=== PATIENT | female | born 1930 | race Caucasian/White ===

== ENCOUNTER 2019-05-29 13:18 | Emergency (ER) | payer OTHER ==
[~2019-05-29] VITALS: Ht 165.1 cm; Wt 64.0 kg
--- NOTE | 2019-05-29 13:30 | NUR ---
BIB RA c/o laceration to bridge of nose s/p syncopal episode. Patient a/ox3, breathing even and unlabored, no sob noted. Patient unable to recall what happened. Kept comfortable.
[2019-05-29 13:46] LABS: BASOPHILS # (AUTO) 0.1 /CMM (0.0-0.2); BASOPHILS % (AUTO) 0.6 % (0.0-2.0); EOSINOPHILS % (AUTO) 7.7 % (0.0-6.0); HEMATOCRIT 45 % (33-45); HEMOGLOBIN 15.3 g/dL (11.5-14.8); LYMPHOCYTES # (AUTO) 3.9 /CMM (0.8-4.8); LYMPHOCYTES % (AUTO) 35.3 % (20.0-44.0); MEAN CORPUSCULAR HGB CONC 34 g/dl (31.0-36.0); MEAN CORPUSCULAR VOLUME 103 fL (82-100); MONOCYTES # (AUTO) 0.5 /CMM (0.1-1.30); NEUTROPHILS # (AUTO) 5.7 /CMM (1.8-8.9); NEUTROPHILS % (AUTO) 51.4 % (43.0-81.0); PLATELET COUNT (AUTO) 184 /CMM (150-450); RED BLOOD CELL COUNT(AUTO) 4.35 MIL/uL (4.0-5.2)
[2019-05-29 13:55] LABS: CALCIUM, SERUM 9.3 mg/dL (8.5-10.1); CARBON DIOXIDE 19 mmol/L (21-32); CHLORIDE 105 mmol/L (98-107); CREATININE 1.1 mg/dL (0.6-1.3); GLUCOSE 124 mg/dL (74-106); POTASSIUM 3.9 mmol/L (3.5-5.1); SODIUM SERUM 142 mmol/L (136-145); UREA NITROGEN, BLOOD 20 mg/dL (7-18)
[2019-05-29 14:00] LABS: ALANINE AMINOTRANSFERASE 38 U/L (12-78); ALBUMIN 3.8 g/dL (3.4-5.0); ALKALINE PHOSPHATASE 68 U/L (46-116); ASPARTATE AMINOTRANSFERASE 27 U/L (15-37); BILIRUBIN,DIRECT 0.1 mg/dL (0.0-0.2); BILIRUBIN,TOTAL 0.6 mg/dL (0.2-1.0); TOTAL PROTEIN, SERUM 6.8 g/dL (6.4-8.2)
--- NOTE | 2019-05-29 14:00 | NUR ---
PATIENT TAKEN TO CT.
--- NOTE | 2019-05-29 14:15 | NUR ---
CALLED [facility] [phone]
[2019-05-29] MEDS ORDERED: IV NS 0.9% 1,000 ML BAG IV ONE (14:30)
--- NOTE | 2019-05-29 14:37 | NUR ---
ACCEPTED BY DR. AMAYA
--- NOTE | 2019-05-29 15:28 | NUR ---
SPOKE WITH MELISSA SILVERMAN AND GAVE UPDATED CLINICALS.
--- NOTE | 2019-05-29 16:24 | NUR ---
Patient ambulatory with steady gait, assisted to restroom. Denies pain at this time.
--- NOTE | 2019-05-29 16:31 | NUR ---
GOING TO [facility] [place] [facility] [phone] ACCEPTING MD MONGE. [facility] ALS AT 1730.
[2019-05-29] MEDS ORDERED: LABETALOL HCL IV 100MG VIAL ONE (16:56)
[2019-05-29] MEDS ORDERED: LABETALOL HCL IV 100MG VIAL IV ONE (17:00)
[2019-05-29 17:02] VITALS: BP 200/105
--- NOTE | 2019-05-29 17:28 | NUR ---
REPORT GIVEN TO [employer]. PATIENT IN STABLE CONDITION. NO DISTRESS NOTED. NEEDS ATTENDED. KEPT COMFORTABLE. PATIENT LEFT THE FACILITY.
== END 2019-05-29 17:29 | disposition short-term general hospital (02) ==
LOC: ER 13:21
DX: S01.21XA Laceration without foreign body of nose, initial encounter (principal); R55 Syncope and collapse; I10 Essential (primary) hypertension; W19.XXXA Unspecified fall, initial encounter; Y93.89 Activity, other specified; Y92.89 Other specified places as the place of occurrence of the external cause; Y99.8 Other external cause status
CPT/HCPCS: 36415; 70450; 70486; 71045; 72125; 80048; 80076; 84484; 85025; 85730; 93005; 96361; 96374; 99285; J3490; J7030

== ENCOUNTER 2019-09-23 02:59 | Emergency (ER) | payer OTHER ==
[~2019-09-23] VITALS: Ht 162.6 cm; Wt 59.0 kg
--- NOTE | 2019-09-23 03:19 | NUR ---
ECG TECH AT THE BED SIDE
[2019-09-23 03:32] LABS: BASOPHILS % (AUTO) 0.4 % (0.0-2.0); EOSINOPHILS % (AUTO) 2.6 % (0.0-6.0); HEMATOCRIT 46 % (33-45); HEMOGLOBIN 15.3 g/dL (11.5-14.8); LYMPHOCYTES # (AUTO) 2.8 /CMM (0.8-4.8); MEAN CORPUSCULAR HGB CONC 33 g/dl (31.0-36.0); MEAN CORPUSCULAR VOLUME 102 fL (82-100); MONOCYTES # (AUTO) 0.6 /CMM (0.1-1.30); NEUTROPHILS # (AUTO) 6.7 /CMM (1.8-8.9); PLATELET COUNT (AUTO) 173 /CMM (150-450); RED BLOOD CELL COUNT(AUTO) 4.53 MIL/uL (4.0-5.2); WHITE BLOOD COUNT (AUTO) 10.4 K/uL (4.3-11.0)
--- NOTE | 2019-09-23 03:38 | NUR ---
PT WAS TAKEN TO CT
[2019-09-23 03:46] LABS: ALANINE AMINOTRANSFERASE 25 U/L (12-78); ALBUMIN 4.1 g/dL (3.4-5.0); ALKALINE PHOSPHATASE 65 U/L (46-116); ASPARTATE AMINOTRANSFERASE 21 U/L (15-37); BILIRUBIN,DIRECT 0.2 mg/dL (0.0-0.2); BILIRUBIN,TOTAL 1.1 mg/dL (0.2-1.0); CARBON DIOXIDE 25 mmol/L (21-32); CHLORIDE 102 mmol/L (98-107); CREATININE 1.2 mg/dL (0.6-1.3); GLUCOSE 138 mg/dL (74-106); POTASSIUM 3.8 mmol/L (3.5-5.1); SODIUM SERUM 138 mmol/L (136-145); TOTAL PROTEIN, SERUM 7.3 g/dL (6.4-8.2); UREA NITROGEN, BLOOD 20 mg/dL (7-18)
--- NOTE | 2019-09-23 05:09 | NUR ---
[facility] PAGED PER DR LÓPEZ.
--- NOTE | 2019-09-23 05:19 | NUR ---
VAMSI SMITH TALKING TO DR. CONTI FROM [facility] PER VAMSI SMITH ORDER.
--- NOTE | 2019-09-23 05:48 | NUR ---
PT ACCEPTED TO [facility] BY DR SY. # FOR REPORT [phone]. ETA [phone]
[2019-09-23] MEDS ORDERED: hydrALAZINE HCL IV 20 MG VIAL IV ONE (06:00)
[2019-09-23] MEDS ORDERED: hydrALAZINE HCL IV 20 MG VIAL ONE (06:00)
--- NOTE | 2019-09-23 06:15 | NUR ---
REPORT GIVEN TO ALIDA AT [facility]
[2019-09-23 06:52] VITALS: BP 152/90
--- NOTE | 2019-09-23 06:53 | NUR ---
REPORT GIVEN TO manager money FROM [facility]
== END 2019-09-23 07:07 | disposition short-term general hospital (02) ==
LOC: ER 02:59
DX: S20.211A Contusion of right front wall of thorax, initial encounter (principal); R55 Syncope and collapse; R42 Dizziness and giddiness; R00.0 Tachycardia, unspecified; I10 Essential (primary) hypertension; Z60.2 Problems related to living alone; Z85.3 Personal history of malignant neoplasm of breast; Z90.12 Acquired absence of left breast and nipple; W18.39XA Other fall on same level, initial encounter; Y93.89 Activity, other specified; Y92.89 Other specified places as the place of occurrence of the external cause; Y99.8 Other external cause status
CPT/HCPCS: 36415; 70450; 71100; 80048; 80076; 84484; 85025; 93005; 96374; 99285; J0360